=== PATIENT | female | born 1950 | race Caucasian/White ===

== ENCOUNTER 2017-09-15 23:27 | Emergency (ER) | payer OTHER ==
[~2017-09-15] VITALS: Ht 147.3 cm; Wt 82.0 kg
[~2017-09-15 23:27] MED LIST: ALBU2.5I INH; DICY10 PO; LISI-357 PO; PHEN12.5 PO; ROPI2 PO
[2017-09-16 00:38] VITALS: BP 157/72; PULSE 74; RESP 16; TEMP 97.9; O2SAT 96
[2017-09-16] MEDS ORDERED: ACETAMINOPHEN 325 MG TAB PO ONE (03:45)
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
== END 2017-09-16 04:56 | disposition home or self-care (01) ==
LOC: NEPD 23:27
DX: S16.1XXA Strain of muscle, fascia and tendon at neck level, initial encounter (principal); S46.912A Strain of unspecified muscle, fascia and tendon at shoulder and upper arm level, left arm, initial encounter; V89.2XXA Person injured in unspecified motor-vehicle accident, traffic, initial encounter; Y92.410 Unspecified street and highway as the place of occurrence of the external cause; J45.909 Unspecified asthma, uncomplicated; K21.9 Gastro-esophageal reflux disease without esophagitis
CPT/HCPCS: 72125; 73030; 99284